=== PATIENT | male | born 1995 | race Caucasian/White ===

== ENCOUNTER 2019-10-12 22:28 | Emergency (ER) | payer OTHER ==
[~2019-10-12] VITALS: Ht 180.3 cm; Wt 88.4 kg
--- NOTE | 2019-10-12 22:43 | PHYS DOC ---
Past History Past Medical History: Cancer, Constipation, IBS General Adult HPI: HPI: ".. I started hurting like I did with my gall bladder on Rt... but it on the Lt tonight.. I do have problems with Constipation... I just started hurting bad after. eating barbecue about 7:30 PM.... Patient is a 24 year old male who presents with above hx and complaints of left upper abdomen pain and constipation. Patient has had a history of constipation. Patient denies any trauma. Patient denies a severe ill contacts. No history of bad food intake. Girlfriend ate the same food he did but she did not get sick. Patient has recently had his gallbladder removed. He did complete a colonoscopy approximately 5 months ago which was normal. Patient does have a history of possible IBS. There is no family history of colitis or ulcerative colitis or Crohn's. Mother does have a history of colon cancer. Review of Systems: Review of Systems: Constitutional: Denies fever or chills Eyes: Denies change in visual acuity HENT: Denies nasal congestion or sore throat Respiratory: Denies cough or shortness of breath Cardiovascular: Denies chest pain or edema GI: Complains of abdominal pain, nausea. Denies, vomiting, bloody stools or diarrhea : Denies dysuria Musculoskeletal: Denies back pain or joint pain Integument: Denies rash Neurologic: Denies headache, focal weakness or sensory changes Endocrine: Denies polyuria or polydipsia Lymphatic: Denies swollen glands Psychiatric: Denies depression or anxiety Heart Score: Risk Factors: Risk Factors: DM, Current or recent (<one month) smoker, HTN, HLP, family history of CAD, obesity. Risk Scores: Score 0 - 3: 2.5% MACE over next 6 weeks - Discharge Home Score 4 - 6: 20.3% MACE over next 6 weeks - Admit for Clinical Observation Score 7 - 10: 72.7% MACE over next 6 weeks - Early Invasive Strategies Family History: Family History: Noncontributory to presentation Current Medications: Current Meds: See nursing for home meds Allergies: Allergies: Sulfa, Bactrim Physical Exam: PE: Constitutional: Moderate acute distress, non-toxic appearance. [] HENT: Normocephalic, atraumatic, bilateral external ears normal, oropharynx moist, no oral exudates, nose normal. [] Eyes: PERRLA, EOMI, conjunctiva normal, no discharge. [] Neck: Normal range of motion, no tenderness, supple, no stridor. [] Cardiovascular:Heart rate regular rhythm, no murmur [] Lungs & Thorax: Bilateral breath sounds clear to auscultation [] Abdomen: Bowel sounds hyperactive, soft, generalized tenderness, distended no masses, no pulsatile masses. [] Mild rebound to upper abdomen Skin: Warm, dry, no erythema, no rash. [] Back: No tenderness, no CVA tenderness. [] Extremities: No tenderness, no cyanosis, no clubbing, ROM intact, no edema. [] No true psoas sign Neurologic: Alert and oriented X 3, normal motor function, normal sensory fu nction, no focal deficits noted. [] Psychologic: Affect anxious judgement normal, mood normal. [] EKG: EKG: [] Radiology/Procedures: Radiology/Procedures: [] IMAGING REPORT Signed PATIENT: NIEVES MATTHEWS ACCOUNT: [id number] : 1995 LOCATION: ER AGE: 24 SEX: M EXAM STATUS: REG ER ORD. PHYSICIAN: VOLODYMYR MATA MD REASON: pain PROCEDURE: ACUTE ABDOMEN SERIES Acute abdominal series to include a PA chest radiograph 10/12/2019 Clinical History: Abdominal pain. A PA digital radiograph of the chest was obtained. Supine and erect AP digital radiographs of the abdomen/pelvis were obtained. No previous studies are available for comparison. The cardiac and mediastinal silhouettes are within normal limits in size and configuration. No pulmonary infiltrate is seen. No pleural effusion or pneumothorax is noted. Surgical clips are seen within the right upper quadrant abdomen consistent with a cholecystectomy. The abdominal bowel gas pattern is nonobstructive. A moderate amount of stool seen throughout the colon. There is no evidence of free air. No radiopaque calculus is seen. Calcifications are seen within the pelvis consistent with phleboliths. The osseous structures are grossly intact. Impression: Nonobstructive bowel gas pattern. Electronically signed by: Fco Haq MD (10/12/2019 11:38 PM) [id number] DICTATED AND SIGNED BY: FOC HAQ MD DATE: 10/12/19 2338 CC: JAS JONES MD; VOLODYMYR MATA MD ~ Course & Med Decision Making: Course & Med Decision Making Pertinent Labs and Imaging studies reviewed. (See chart for details) Patient remain on clear fluid diet only. No solids. No milk products. Must follow-up with primary care. Patient take Tylenol and ibuprofen for pain. After passage of stool burden consider CT of abdomen still having pain. Must follow-up. Impression: 1. Abdomen pain 2. History of constipation 3. History of irritable bowel syndrome [] Dragon Disclaimer: Dragon Disclaimer: This electronic medical record was generated, in whole or in part, using a voice recognition dictation system. Departure Departure: Disposition: 01 HOME/RESIDENCE PRIOR TO ADM Condition: STABLE Referrals: JAS JONES MD (PCP) Justification of Admission: Justification of Admission: Justification of Admission Dx: N/A Dragon Disclaimer This chart was dictated in whole or in part using Voice Recognition software in a busy, high-work load, and often noisy Emergency Department environment. It may contain unintended and wholly unrecognized errors or omissions. VOLODYMYR MATA MD Oct 12, 2019 22:43
[2019-10-12] MEDS ORDERED: IV RINGERS SOLUTION,LACTATED 1,000 ML IV SCH (22:44)
--- NOTE | 2019-10-12 23:41 | RAD ---
Acute abdominal series to include a PA chest radiograph 10/12/2019 Clinical History: Abdominal pain. A PA digital radiograph of the chest was obtained. Supine and erect AP digital radiographs of the abdomen/pelvis were obtained. No previous studies are available for comparison. The cardiac and mediastinal silhouettes are within normal limits in size and configuration. No pulmonary infiltrate is seen. No pleural effusion or pneumothorax is noted. Surgical clips are seen within the right upper quadrant abdomen consistent with a cholecystectomy. The abdominal bowel gas pattern is nonobstructive. A moderate amount of stool seen throughout the colon. There is no evidence of free air. No radiopaque calculus is seen. Calcifications are seen within the pelvis consistent with phleboliths. The osseous structures are grossly intact. Impression: Nonobstructive bowel gas pattern. Electronically signed by: Fco Haq MD (10/12/2019 11:38 PM) [id number]
[2019-10-12 23:42] LABS: CALCIUM 8.9 mg/dL (8.5-10.1); CREATININE 1.7 mg/dL (0.7-1.3); GFR 49.4
[2019-10-12 23:46] LABS: BASO % 1 % (0-3); EOS # 0.5 x10^3/uL (0.0-0.7); EOS % 10 % (0-3); HEMATOCRIT 39.8 % (39.0-53.0); HEMOGLOBIN 13.5 g/dL (13.0-17.5); LYMPH # 1.1 x10^3/uL (1.0-4.8); LYMPH % 24 % (24-48); MEAN CORPUSCULAR HEMOGLOBIN 29 pg (25-35); MEAN CORPUSCULAR HGB CONC 34 g/dL (31-37); MEAN CORPUSCULAR VOLUME 85 fL (79-100); MONO # 0.4 x10^3/uL (0.0-1.1); MONO % 8 % (0-9); NEUT # 2.6 x10^3uL (1.8-7.7); NEUT % 57 % (31-73); PLATELET COUNT 203 x10^3/uL (140-400); RED BLOOD COUNT 4.67 x10^6/uL (4.30-5.70); RED CELL DISTRIBUTION WIDTH 15.7 % (11.5-14.5); WHITE BLOOD COUNT 4.6 x10^3/uL (4.0-11.0)
[2019-10-12 23:48] LABS: DIRECT BILIRUBIN 0.2 mg/dL (0.0-0.2); TOTAL BILIRUBIN 0.7 mg/dL (0.2-1.0); TOTAL PROTEIN 6.9 g/dL (6.4-8.2)
[2019-10-13 00:34] LABS: BARBITURATES NEG (NEG); BENZODIAZEPINES NEG (NEG); CANNABINOIDS NEG (NEG); COCAINE NEG (NEG); METHADONE NEG (NEG); OPIATES NEG (NEG); PHENCYCLIDINE NEG (NEG)
[2019-10-13 00:37] VITALS: BP 111/71
[2019-10-13 00:38] LABS: AMPHETAMINE/METHAMPHETAMINE NEG (NEG)
[2019-10-13 00:59] LABS: BILIRUBIN,URINE NEG (NEG); CLARITY,URINE CLEAR; COLOR,URINE STRAW; GLUCOSE,URINE NEG (NEG)
[2019-10-13 01:00] LABS: AMORPHOUS SEDIMENT,UR PRESENT /HPF; BACTERIA,URINE 0 /HPF (0-FEW); NITRITE,URINE NEG (NEG); RBC,URINE 0 /HPF (0-2); UROBILINOGEN,URINE 0.2 mg/dL (0.2 mg/dL); WBC,URINE 0 /HPF (0-4)
[2019-10-13] MEDS ORDERED: KETOROLAC 30 MG/ML VIAL. ONE (01:08)
[2019-10-13] MEDS ORDERED: MAGNESIUM CITRATE 296 ML SOLUTION. ONE (01:08)
[2019-10-13] MEDS ORDERED: MAGNESIUM HYDROXIDE 2,400 MG/30 ML ORAL.SUSP. PO ONE (01:15)
[2019-10-13] MEDS ORDERED: KETOROLAC 30 MG/ML VIAL. IVP ONE (01:15)
[2019-10-13] MEDS ORDERED: MAGNESIUM CITRATE 296 ML SOLUTION. PO ONE (01:15)
== END 2019-10-13 01:21 | disposition home or self-care (01) ==
LOC: ER 22:28
DX: R10.12 Left upper quadrant pain (principal); K59.00 Constipation, unspecified; K58.9 Irritable bowel syndrome, unspecified
CPT/HCPCS: 36415; 74022; 80048; 80076; 80307; 81001; 82150; 82550; 83690; 84484; 85025; 85610; 85730; 96374; 99284; J1885; J7120